=== PATIENT | male | born 1995 | race Caucasian/White ===

== ENCOUNTER 2019-11-25 13:46 | Inpatient (IN) | payer OTHER ==
[~2019-11-25] VITALS: Ht 190.5 cm; Wt 72.3 kg
[2019-11-25 17:45] VITALS: BP 167/121
[2019-11-25] MEDS ORDERED: HALOPERIDOL 5 MG TABLET PO PRN (18:00)
[2019-11-25] MEDS ORDERED: ZOLPIDEM TARTRATE 10 MG TABLET PO PRN (18:00)
[2019-11-25 18:02] VITALS: BP 149/109
[2019-11-25 18:13] VITALS: BP 132/111
[2019-11-25] MEDS ORDERED: INFLUENZA VIRUS VACCINE QVS 2019-20 (3YR+)/PF 60 MCG/0.5 ML SYRINGE IM ONE (19:00)
[2019-11-26 06:41] VITALS: BP 127/90
[2019-11-26] MEDS: AmLODIPine BESYLATE 5 MG TABLET PO SCH (08:58)
[2019-11-26 09:04] VITALS: BP 123/80
[2019-11-26] MEDS ORDERED: CloNIDine HCL 0.1 MG TABLET PO PRN (09:15)
[2019-11-26] MEDS ORDERED: LOPERAMIDE HCL 2 MG CAPSULE PO PRN (09:15)
[2019-11-26] MEDS ORDERED: IBUPROFEN 400 MG TABLET PO PRN (09:15)
[2019-11-26] MEDS ORDERED: NICOTINE 14 MG/24 HOUR PATCH TD PRN (09:15)
[2019-11-26] MEDS ORDERED: PETROLATUM,WHITE 28 GM JELLY TP PRN (09:15)
[2019-11-26] MEDS ORDERED: ONDANSETRON HCL 4 MG TABLET PO PRN (09:15)
[2019-11-26] MEDS ORDERED: MAGNESIUM HYDROXIDE SUSPENSION 30 ML UDCUP PO PRN (09:15)
[2019-11-26] MEDS ORDERED: DOCUSATE SODIUM 100 MG CAPSULE PO PRN (09:15)
[2019-11-26] MEDS ORDERED: ACETAMINOPHEN 325 MG TABLET PO PRN (09:15)
[2019-11-26] MEDS ORDERED: MAG HYDROX/AL HYDROX/SIMETH ES 30 ML SUSPENSION UDCUP PO PRN (09:15)
[2019-11-26] MEDS ORDERED: GuaiFENesin/D-METHORPHAN [SUGAR-FREE] 200-20MG/10 ML SYRUP UDCUP PO PRN (09:15)
[2019-11-26] MEDS: LORazepam 2 MG TABLET PO PRN (16:02)
[2019-11-26 16:09] VITALS: BP_SYST 112; BP_SYST 147; BP_DIAS 77; BP_DIAS 80
[2019-11-26 20:32] VITALS: BP 112/80
[2019-11-26] MEDS: OLANZapine 5 MG TABLET PO SCH (20:33)
[2019-11-27 05:01] VITALS: BP 131/73
[2019-11-27 08:05] LABS: BASOPHILS % (AUTO) 0.9 % (0.0-2.0); EOSINOPHILS % (AUTO) 3.9 % (1.0-6.0); HEMATOCRIT 45.6 % (41-53); HEMOGLOBIN 15.7 g/dL (13.5-17.5); LYMPHOCYTES # (AUTO) 2.1 K/uL (1.0-4.8); LYMPHOCYTES % (AUTO) 52.3 % (22.0-44.0); MEAN CORPUSCULAR HEMOGLOBIN 31.4 pg (26.0-34.0); MEAN CORPUSCULAR HGB CONC 34.4 G/dL (31.0-37.0); MEAN CORPUSCULAR VOLUME 91 fL (80-100); MONOCYTES # (AUTO) 0.4 K/uL (0.1-1.0); MONOCYTES % (AUTO) 11.1 % (2.0-9.0); NEUTROPHILS # (AUTO) 1.3 K/uL (1.8-7.7); NEUTROPHILS % (AUTO) 31.8 % (40.0-70.0); PLATELET COUNT (AUTO) 190 K/uL (150-450); RED CELL DISTRIBUTION WIDTH 12.8 % (11.5-14.5)
[2019-11-27 08:28] LABS: ALANINE AMINOTRANSFERASE 17 U/L (12-78); ALBUMIN 4.2 g/dL (3.4-5.0); ALKALINE PHOSPHATASE 61 U/L (46-116); ANION GAP 7 mmol/L (8-16); ASPARTATE AMINOTRANSFERASE 12 U/L (15-37); BILIRUBIN,TOTAL 0.8 mg/dL (0.1-1.0); CALCIUM, TOTAL 9.9 mg/dL (8.8-10.5); CARBON DIOXIDE 30 mmol/L (22-29); CHLORIDE 102 mmol/L (98-107); CHOL/HDL RATIO 3.4 (4.2-7.3); CHOLESTEROL 170 mg/dL (131-200); CREATININE 0.77 mg/dL (0.60-1.30); FREE T4 (FREE THYROXINE) 1.16 ng/dL (0.76-1.46); GLOMERULAR FILTR. RATE CALC > 60 mL/min (>60); GLUCOSE,RANDOM 77 mg/dL (70-110); HDL CHOLESTEROL 50 mg/dL (40-60); LDL CHOL (CALC.) 112 mg/dL (0-130); POTASSIUM 3.7 mmol/L (3.5-5.1); SODIUM SERUM 139 mmol/L (136-145); THYROID STIMULATING HORMONE 2.33 uIU/mL (0.36-3.74); TOTAL PROTEIN, SERUM 7.4 g/dL (6.4-8.2); TRIGLYCERIDES 41 mg/dL (15-150); UREA NITROGEN, BLOOD 12 mg/dL (7-18)
[2019-11-27 08:32] LABS: C-REACTIVE PROTEIN QUANT < 0.05 mg/dL (0.00-0.30)
[2019-11-27 08:39] VITALS: BP 114/91
[2019-11-27] MEDS: AmLODIPine BESYLATE 5 MG TABLET PO SCH (09:37)
[2019-11-27 09:42] LABS: ERYTHROCYTE SEDIMENTATION RATE 4 MM/HR (0-15)
[2019-11-27 16:14] VITALS: BP 154/77
[2019-11-27 20:19] VITALS: BP 130/90
[2019-11-27] MEDS: OLANZapine 5 MG TABLET PO SCH (20:53)
[2019-11-28 05:05] VITALS: BP 108/69
[2019-11-28 08:31] VITALS: BP 122/90
[2019-11-28] MEDS: AmLODIPine BESYLATE 5 MG TABLET PO SCH (08:48)
[2019-11-28] MEDS: LORazepam 2 MG TABLET PO PRN (10:53)
[2019-11-28 16:09] VITALS: BP 130/86
[2019-11-28] MEDS: OLANZapine 5 MG TABLET PO SCH (21:55)
[2019-11-29 05:09] VITALS: BP 108/66
[2019-11-29] MEDS: AmLODIPine BESYLATE 5 MG TABLET PO SCH (08:36)
[2019-11-29 08:45] VITALS: BP 132/90
[2019-11-29] MEDS: LORazepam 2 MG TABLET PO PRN (08:56)
[2019-11-29 16:23] VITALS: BP 134/86
[2019-11-29] MEDS: OLANZapine 5 MG TABLET PO SCH (20:36)
[2019-11-30 08:20] VITALS: BP 115/77
[2019-11-30] MEDS: AmLODIPine BESYLATE 5 MG TABLET PO SCH (08:39)
[2019-11-30] MEDS: LORazepam 2 MG TABLET PO PRN (17:09)
[2019-11-30 18:27] VITALS: BP 124/79
[2019-11-30] MEDS: OLANZapine 10 MG TABLET PO SCH (20:21)
[2019-12-01 01:30] VITALS: BP 115/57
[2019-12-01 08:18] VITALS: BP 124/78
[2019-12-01] MEDS: AmLODIPine BESYLATE 5 MG TABLET PO SCH (08:57)
[2019-12-01 16:06] VITALS: BP 123/79
[2019-12-01] MEDS: OLANZapine 10 MG TABLET PO SCH (20:27)
[2019-12-02 00:59] VITALS: BP 108/70
[2019-12-02] MEDS: AmLODIPine BESYLATE 5 MG TABLET PO SCH (08:30)
[2019-12-02 08:35] VITALS: BP 118/68
[2019-12-02 16:00] VITALS: BP 116/86
[2019-12-02] MEDS: OLANZapine 10 MG TABLET PO SCH (20:22)
[2019-12-03 06:45] VITALS: BP 106/62
[2019-12-03 08:31] VITALS: BP 130/72
[2019-12-03] MEDS: AmLODIPine BESYLATE 5 MG TABLET PO SCH (09:01)
[2019-12-03] MEDS: LORazepam 2 MG TABLET PO PRN (16:26)
[2019-12-03 16:41] VITALS: BP 127/79
[2019-12-03] MEDS: OLANZapine 10 MG TABLET PO SCH (20:08)
[2019-12-04 06:39] VITALS: BP 112/82
[2019-12-04] MEDS: AmLODIPine BESYLATE 5 MG TABLET PO SCH (08:22)
[2019-12-04 09:07] VITALS: BP 102/62
[2019-12-04] MEDS: OLANZapine 10 MG TABLET PO SCH ×2 (11:36→16:39)
[2019-12-04 16:08] VITALS: BP 106/64
[2019-12-05 00:36] VITALS: BP 102/60
[2019-12-05 08:29] VITALS: BP 104/63
[2019-12-05] MEDS: AmLODIPine BESYLATE 5 MG TABLET PO SCH (08:38)
[2019-12-05] MEDS: OLANZapine 10 MG TABLET PO SCH ×2 (08:38→16:10)
[2019-12-05 16:07] VITALS: BP 126/85
[2019-12-05] MEDS: ALBUTEROL SULFATE HFA 90 MCG/PUFF 8 GM INHALER IH PRN (19:58)
[2019-12-06 00:32] VITALS: BP 100/51
[2019-12-06] MEDS: AmLODIPine BESYLATE 5 MG TABLET PO SCH (08:39)
[2019-12-06] MEDS: OLANZapine 10 MG TABLET PO SCH ×2 (08:39→16:55)
[2019-12-06 09:00] VITALS: BP 140/87
[2019-12-06 16:27] VITALS: BP 113/65
[2019-12-07 05:31] VITALS: BP 131/68
[2019-12-07] MEDS: OLANZapine 10 MG TABLET PO SCH ×2 (08:36→16:59)
[2019-12-07] MEDS: AmLODIPine BESYLATE 5 MG TABLET PO SCH (08:36)
[2019-12-07 09:32] VITALS: BP 137/91
[2019-12-07 16:03] VITALS: BP 104/88
[2019-12-08 08:06] VITALS: BP 110/76
[2019-12-08] MEDS: OLANZapine 10 MG TABLET PO SCH ×2 (08:50→16:13)
[2019-12-08] MEDS: AmLODIPine BESYLATE 5 MG TABLET PO SCH (08:50)
[2019-12-08 17:11] VITALS: BP 136/84
[2019-12-08] MEDS: ALBUTEROL SULFATE HFA 90 MCG/PUFF 8 GM INHALER IH PRN (19:35)
[2019-12-09 05:43] VITALS: BP 105/62
[2019-12-09 08:28] VITALS: BP 107/65
[2019-12-09 09:00] VITALS: BP 114/66
[2019-12-09] MEDS: OLANZapine 10 MG TABLET PO SCH ×2 (09:05→16:24)
[2019-12-09] MEDS: AmLODIPine BESYLATE 5 MG TABLET PO SCH (09:05)
[2019-12-09 16:13] VITALS: BP 130/76
[2019-12-10 06:36] VITALS: BP 112/65
[2019-12-10 08:10] VITALS: BP 130/90
[2019-12-10] MEDS: AmLODIPine BESYLATE 5 MG TABLET PO SCH (08:25)
[2019-12-10] MEDS: OLANZapine 10 MG TABLET PO SCH ×2 (08:25→16:33)
[2019-12-10 16:10] VITALS: BP 132/89
[2019-12-10] MEDS: ALBUTEROL SULFATE HFA 90 MCG/PUFF 8 GM INHALER IH PRN (16:33)
[2019-12-11 08:25] VITALS: BP 160/98
[2019-12-11] MEDS: OLANZapine 10 MG TABLET PO SCH (08:35)
[2019-12-11] MEDS: AmLODIPine BESYLATE 5 MG TABLET PO SCH (08:35)
[2019-12-11] MEDS ORDERED: OLAN10TA3 PO (12:19)
[2019-12-11] MEDS ORDERED: AMLO5TAB9 PO (12:20)
== END 2019-12-11 14:00 | disposition home or self-care (01) | DRG 885 ==
LOC: B2S 18:04
PROVIDERS: ADMIT Psychiatry & Neurology Psychiatry; ATTEND Psychiatry & Neurology Child & Adolescent Psychiatry
DX: F20.9 Schizophrenia, unspecified (principal); R45.851 Suicidal ideations; Z60.2 Problems related to living alone; F12.90 Cannabis use, unspecified, uncomplicated; R00.0 Tachycardia, unspecified; D72.819 Decreased white blood cell count, unspecified; R53.83 Other fatigue; F22 Delusional disorders; Z71.51 Drug abuse counseling and surveillance of drug abuser
CPT/HCPCS: 82390; 84439; 84443; 85651; 86038; 86140; 87081; J3535

== ENCOUNTER 2019-11-25 19:24 | Emergency (ER) | payer OTHER ==
[~2019-11-25] VITALS: Ht 190.5 cm; Wt 77.3 kg
[2019-11-25 20:59] LABS: AMPHET/METH SCREEN,URINE NEGATIVE (NEGATIVE); BARBITURATE SCREEN, URINE NEGATIVE (NEGATIVE); BENZODIAZEPINES SCREEN,URINE NEGATIVE (NEGATIVE); CANNABINOID SCREEN,URINE NEGATIVE (NEGATIVE); COCAINE SCREEN,URINE NEGATIVE (NEGATIVE); METHADONE SCREEN, URINE NEGATIVE (NEGATIVE); OPIATE SCREEN,URINE NEGATIVE (NEGATIVE)
[2019-11-25 21:01] LABS: PHENCYCLIDINE SCREEN,URINE NEGATIVE (NEGATIVE)
[2019-11-25 22:08] VITALS: BP 157/96
== END 2019-11-25 22:10 | disposition home or self-care (01) ==
LOC: EMS 19:25
DX: I10 Essential (primary) hypertension (principal); F32.9 Major depressive disorder, single episode, unspecified